=== PATIENT | female | born 1990 | race Caucasian/White ===

== ENCOUNTER 2022-09-27 21:22 | Inpatient (IN) | payer OTHER, SELFPAY ==
[2022-09-27 22:08] VITALS: BMI 32.4
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
--- NOTE | 2022-09-28 09:46 | HE.PHANOTE ---
METHADONE MAINTENANCE CLINIC VERIFICATION FORM [facility] [place] . LAST DOSE 09/25/22
[2022-09-28] MEDS: Multivitamin TABLET 1 TAB PO (09:48)
[2022-09-28] MEDS: Nicotine 21 MG PATCH.TD24 TRANSDERMA (09:48)
[2022-09-28] MEDS: methADONE HCl 20 MG/2 ML ORAL.CONC 30 MG PO (10:34)
[2022-09-28 11:04] VITALS: BP 115/54; PULSE 72; RESP 18; TEMP 36.3; O2SAT 99
[2022-09-28] MEDS: hydrOXYzine HCL 25 MG TABLET PO ×3 (11:15→20:40)
[2022-09-28] MEDS: Cyclobenzaprine HCl 10 MG TABLET PO (11:15)
[2022-09-28] MEDS: Ondansetron ODT 4 MG TAB.RAPDIS TRANSLINGU (11:16)
[2022-09-28] MEDS: Dicyclomine HCl 10 MG CAPSULE PO (11:16)
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
[2022-09-28 18:00] VITALS: BP 97/50; PULSE 61; TEMP 36.1; O2SAT 100
[2022-09-29] MEDS: Clindamycin HCL 300 MG CAPSULE PO ×3 (05:45→21:28)
[2022-09-29 08:05] VITALS: BP 85/49; PULSE 57; RESP 18; TEMP 36.3; O2SAT 98
[2022-09-29] MEDS: Multivitamin TABLET 1 TAB PO (08:16)
[2022-09-29] MEDS: methADONE HCl 20 MG/2 ML ORAL.CONC 30 MG PO (08:16)
[2022-09-29 09:15] VITALS: BP 140/94
[2022-09-29] MEDS: hydrOXYzine HCL 25 MG TABLET PO ×2 (12:13→18:33)
--- NOTE | 2022-09-29 12:52 | P.PNPSI_ITS ---
Subjective Subjective Date of Service: 09/29/22 Reason For Visit: Depression,Opiate use d/o,Polysubstance abuse d/o Interim History: Met with patient; discussed with team Patient reports that she is still depressed and anxious but feeling a little better on the unit. She very much wants help getting and staying sober and is asking if it is possible for her to go to a CSS; she also said that she wants to remain on methadone and there was a methadone clinic near where her mother lives in [place]. Discussed history further and patient endorses that even during her 2 years of sobriety, she would have manic episodes that lasted about 3-5 days during which time she was hyperactive, cleaning the whole house, requiring almost no sleep at all yet wide awake, talking fast, increased libido, spending money and engaging in dangerous activities like jumping from bridge to bridge or getting on top of cars, something she said she would look back on and regret. She also says that most of her relapse as with substance abuse would occur during these 3-5 day periods. Patient reports these manic episodes alternate with 3-5 days of feeling very depressed, not getting out of better attending to any ADLs. She says these depressed and manic episodes would alternate back to back however there were would sometimes be maybe a month where she was only depressed. Patient has few medication trials. Discussed options including repairer typewriter's concern for possible bipolar disorder and need for mood stabilizers. Patient agreed to trial of lithium after reviewing risks/side effects. Also discussed worse Lamictal which can help cover for PTSD symptoms however patient is worried she would forget to take it Patient shared more details about her history of trauma which as mentioned before is significant Patient discussed how she had her 1st child at 15 whom she eventually gave up for adoption Mental Status Exam Mental Status Exam Narrative: Pt is alert and oriented; behavior is hyperactive but cooperative, and friendly; patient is not in distress; dressed in hospital attire with unkempt hair but good hygiene; mood is depressed... Anxious and affect congruent; eye contact appropriate; Speech is hyperverbal and a little pressured; normal volume and prosody; some psychomotor agitation present; thought process is mostly goal directed but can become quite circumstantial; Thought content is on tx; otherwise pertinent to relevant topics and without any delusional content, paranoid ideations or grandiosity; intermittent passive SI/no HI. There is no evidence of perceptual disturbance and denies AVH Patients insight and judgment impaired Diagnostics Vital Signs (24Hr): Vital Signs - 24 hr 09/28/22 18:00 09/29/22 08:05 09/29/22 09:15 Temperature 96.9 F 97.3 F Pulse Rate 61 57 Respiratory Rate 18 Blood Pressure 97/50 L 85/49 L 140/94 H Pulse Oximetry 100 98 Oxygen Delivery Method Room Air Room Air BMI result Body Mass Index 32.4 Medications Medications Current Medications Acetaminophen (Acetaminophen 325 Mg Tablet) 650 mg PO Q6H PRN PRN Reason: Headache/Pain Mild Scale (1-3) Al Hydroxide/Mg Hydroxide (Magnesium Hydrox/Alum Hydrox 30 Ml Oral.Susp) 30 ml PO Q6H PRN PRN Reason: Heartburn/Nausea Clindamycin HCl (Clindamycin Hcl 300 Mg Capsule) 300 mg PO Q8H [facility] Last Admin: 09/29/22 05:45 Dose: 300 mg Clonidine HCl (Clonidine Hcl 0.1 Mg Tablet) 0.1 mg PO Q4H PRN; Protocol PRN Reason: withdrawal symptoms Cyclobenzaprine HCl (Cyclobenzaprine Hcl 10 Mg Tablet) 10 mg PO TID PRN PRN Reason: muscle cramps Last Admin: 09/28/22 11:15 Dose: 10 mg Dicyclomine HCl (Dicyclomine Hcl 10 Mg Capsule) 10 mg PO QID PRN PRN Reason: abdominal cramps Last Admin: 09/28/22 11:16 Dose: 10 mg Gabapentin (Gabapentin 300 Mg Capsule) 300 mg PO TID PRN PRN Reason: anxiety/insomnia Hydroxyzine HCl (Hydroxyzine Hcl 25 Mg Tablet) 25 mg PO Q6H PRN PRN Reason: Anxiety Last Admin: 09/29/22 12:13 Dose: 25 mg Loperamide HCl (Loperamide Hcl 2 Mg Capsule) 2 mg PO Q6H PRN PRN Reason: Loose Stool Magnesium Hydroxide (Milk Of Magnesia 30 Ml Oral.Susp) 30 ml PO DAILY PRN PRN Reason: Constipation Melatonin (Melatonin 3 Mg Tablet) 3 mg PO BEDTIME PRN PRN Reason: Insomnia Methadone HCl (Methadone Hcl 20 Mg/2 Ml Oral.Conc) 30 mg PO DAILY [facility] Last Admin: 09/29/22 08:16 Dose: 30 mg Multivitamins/Vitamin C (Multivitamin Tablet) 1 tab PO DAILY [facility] Last Admin: 09/29/22 08:16 Dose: 1 tab Nicotine (Nicotine 21 Mg Patch.Td24) 21 mg TRANSDERMA DAILY [facility] Last Admin: 09/29/22 09:01 Dose: Not Given Nicotine Polacrilex (Nicotine Polacrilex Lozenge 2 Mg Lozenge) 2 mg BUCCAL Q2H PRN PRN Reason: Nicotine Cravings Olanzapine (Olanzapine 5 Mg Tablet) 5 mg PO TID PRN PRN Reason: agitation Ondansetron HCl (Ondansetron Odt 4 Mg Tab.Rapdis) 4 mg TRANSLINGU Q6H PRN PRN Reason: nasuea Trazodone HCl (Trazodone Hcl 50 Mg Tablet) 50 mg PO BEDTIME MRX1 PRN PRN Reason: Insomnia Allergies Allergies Allergy/AdvReac Type Severity Reaction Status Date / Time codeine Allergy Unknown Unknown Verified 09/27/22 14:43 perphenazine Allergy Unknown Unknown Verified 09/27/22 14:43 pcn Allergy Unknown Unknown Uncoded 09/27/22 14:43 Assessment & Plan Assessment & Plan (1) Routine history and physical examination of adult: Status: Acute Code(s): Z00.00 - Encounter for general adult medical examination without abnormal findings Plan Patient is a 31-year-old resilient, friendly female with history of PTSD, depression and mood lability, substance abuse who presents for depression, SI in the face of untreated psychiatric illness and ongoing substance abuse.? -patient is depressed; further review of history reveals evidence for bipolar disorder as patient has manic episodes that last about 3-5 days exhibiting most symptoms of kimberley. While ADHD and trauma are likely contributing factors, patient meets criteria for bipolar; she also has family history of bipolar disorder. -patient has history of severe and extensive trauma dating back to childhood; foster care...? Despite all this she managed to graduate high school and even attend some college Hospital course: 09/29 patient remains depressed with intermittent passive SI however she feels more hopeful and is very eager to pursue sobriety, coming up with hopeful plans. History further reviewed and patient meets criteria for bipolar disorder; she agrees to start lithium since she also has chronic depression and intermittent chronic SI. Plan: CV Q 15 minute checks START [place] ER 300mg qhs Will consider Lamictal as well since it is a mood stabilizer but also helps with PTSD symptoms; patient ambivalent Continue methadone 30 mg; will discuss maintenance plan; patient says this dose is helping with withdrawal however it will not keep for sober Comfort medications for withdrawal symptoms Will further evaluate for medication for mood lability Gather collateral; patient gave verbal permission to discuss case with her mother and sister; mother also has history of substance abuse however has been sober for year and a half and the to are supportive History Hepatitis C Pt currently asymptomatic: no abdominal pain or swelling, fever, fatigue, jaundice F/U outpatient with PCP for possible treatment Patient educated on: diagnosis, medication risk/benefits, substance abuse and therapeutic strategies Informed Consent: understands Reason for continued inpatient stay Substantial Risk for: rapid decompensation Time Spent With Patient Time: Total time managing care of this patient today ____ minutes.
[2022-09-29] MEDS: Gabapentin 300 MG CAPSULE PO ×3 (13:16→20:06)
[2022-09-29 18:00] VITALS: BP 115/55; PULSE 78; RESP 18; TEMP 36.8; O2SAT 98
[2022-09-29] MEDS: Lithium Carbonate ER 300 MG TABLET.ER PO (20:06)
[2022-09-30 06:00] VITALS: BP 110/68; PULSE 68; RESP 14; TEMP 36.8; O2SAT 99
[2022-09-30] MEDS: Clindamycin HCL 300 MG CAPSULE PO ×3 (06:22→20:22)
[2022-09-30] MEDS: methADONE HCl 20 MG/2 ML ORAL.CONC 30 MG PO (08:32)
[2022-09-30] MEDS: Multivitamin TABLET 1 TAB PO (08:32)
[2022-09-30] MEDS: Magnesium Hydrox/Alum Hydrox 30 ML ORAL.SUSP PO ×2 (08:32→20:25)
[2022-09-30] MEDS: Gabapentin 300 MG CAPSULE PO ×2 (11:32→18:14)
--- NOTE | 2022-09-30 13:32 | P.PNPSI_ITS ---
Subjective Subjective Date of Service: 09/30/22 Reason For Visit: Depression,Opiate use d/o,Polysubstance abuse d/o Interim History: met with pt; discussed with team pt hyperactive; patient thinks this is due to ADHD rather than current manic episode, explaining that with ADHD she may blurt something out, but immediately regrets it; however during a manic episode she may say all sorts of things, some angry and some challenging things as well but have no regret until after manic episode over. Patient reports that her current hyperactivity and distractibility is her baseline and not a manic episode. pt says [place] seemed to have a calming effect on her last night and she wants to continue; discussed difficulty knowing dose; also discussed PTSD symptoms and possible treatment. pt having w/drawal; asks if methadone can be increased; wants a CSS if possible Mental Status Exam Mental Status Exam Narrative: Pt is alert and oriented; behavior is hyperactive and distracted, but cooperative, and friendly; patient is not in distress; dressed in hospital attire with unkempt hair but good hygiene; mood is depressed... Anxious but OK and affect congruent; eye contact appropriate; Speech is hyperverbal and a little pressured; normal volume and prosody; some psychomotor agitation present; thought process is mostly goal directed but can get distracted; sometimes circumstantial; Thought content is on tx, dealing with issues, sobriety, ptsd; otherwise pertinent to relevant topics and without any delusional content, paranoid ideations or grandiosity; no SI/no HI. There is no evidence of perceptual disturbance and denies AVH Patients insight and judgment impaired but improving Diagnostics Vital Signs (24Hr): Vital Signs - 24 hr 09/29/22 18:00 09/30/22 06:00 Temperature 98.3 F 98.2 F Pulse Rate 78 68 Respiratory Rate 18 14 Blood Pressure 115/55 L 110/68 Pulse Oximetry 98 99 Oxygen Delivery Method Room Air Room Air BMI result Body Mass Index 32.4 Medications Medications Current Medications Acetaminophen (Acetaminophen 325 Mg Tablet) 650 mg PO Q6H PRN PRN Reason: Headache/Pain Mild Scale (1-3) Al Hydroxide/Mg Hydroxide (Magnesium Hydrox/Alum Hydrox 30 Ml Oral.Susp) 30 ml PO Q6H PRN PRN Reason: Heartburn/Nausea Last Admin: 09/30/22 08:32 Dose: 30 ml Clindamycin HCl (Clindamycin Hcl 300 Mg Capsule) 300 mg PO Q8H [facility] Last Admin: 09/30/22 06:22 Dose: 300 mg Clonidine HCl (Clonidine Hcl 0.1 Mg Tablet) 0.1 mg PO Q4H PRN; Protocol PRN Reason: Anxiety Cyclobenzaprine HCl (Cyclobenzaprine Hcl 10 Mg Tablet) 10 mg PO TID PRN PRN Reason: muscle cramps Last Admin: 09/28/22 11:15 Dose: 10 mg Dicyclomine HCl (Dicyclomine Hcl 10 Mg Capsule) 10 mg PO QID PRN PRN Reason: abdominal cramps Last Admin: 09/28/22 11:16 Dose: 10 mg Gabapentin (Gabapentin 300 Mg Capsule) 300 mg PO TID PRN PRN Reason: anxiety/insomnia Last Admin: 09/30/22 11:32 Dose: 300 mg Hydroxyzine HCl (Hydroxyzine Hcl 50 Mg Tablet) 50 mg PO Q6H PRN PRN Reason: Anxiety [place] Carbonate ([place] Carbonate Er 300 Mg Tablet.Er) 300 mg PO BEDTIME [facility] Last Admin: 09/29/22 20:06 Dose: 300 mg Loperamide HCl (Loperamide Hcl 2 Mg Capsule) 2 mg PO Q6H PRN PRN Reason: Loose Stool Magnesium Hydroxide (Milk Of Magnesia 30 Ml Oral.Susp) 30 ml PO DAILY PRN PRN Reason: Constipation Melatonin (Melatonin 3 Mg Tablet) 3 mg PO BEDTIME PRN PRN Reason: Insomnia Methadone HCl (Methadone Hcl 20 Mg/2 Ml Oral.Conc) 30 mg PO DAILY [facility] Last Admin: 09/30/22 08:32 Dose: 30 mg Multivitamins/Vitamin C (Multivitamin Tablet) 1 tab PO DAILY [facility] Last Admin: 09/30/22 08:32 Dose: 1 tab Nicotine (Nicotine 21 Mg Patch.Td24) 21 mg TRANSDERMA DAILY [facility] Last Admin: 09/30/22 09:09 Dose: Not Given Nicotine Polacrilex (Nicotine Polacrilex Lozenge 2 Mg Lozenge) 2 mg BUCCAL Q2H PRN PRN Reason: Nicotine Cravings Olanzapine (Olanzapine 5 Mg Tablet) 5 mg PO TID PRN PRN Reason: agitation Ondansetron HCl (Ondansetron Odt 4 Mg Tab.Rapdis) 4 mg TRANSLINGU Q6H PRN PRN Reason: nasuea Trazodone HCl (Trazodone Hcl 50 Mg Tablet) 50 mg PO BEDTIME MRX1 PRN PRN Reason: Insomnia Allergies Allergies Allergy/AdvReac Type Severity Reaction Status Date / Time codeine Allergy Unknown Unknown Verified 09/27/22 14:43 perphenazine Allergy Unknown Unknown Verified 09/27/22 14:43 pcn Allergy Unknown Unknown Uncoded 09/27/22 14:43 Assessment & Plan Assessment & Plan (1) Routine history and physical examination of adult: Status: Acute Code(s): Z00.00 - Encounter for general adult medical examination without abnormal findings Plan Patient is a 31-year-old resilient, friendly female with history of PTSD, depression and mood lability, substance abuse who presents for depression, SI in the face of untreated psychiatric illness and ongoing substance abuse.? -patient is depressed; further review of history reveals evidence for bipolar disorder as patient has manic episodes that last about 3-5 days exhibiting most symptoms of kimberley. While ADHD and trauma are likely contributing factors, patient meets criteria for bipolar; she also has family history of bipolar disorder. -patient has history of severe and extensive trauma dating back to childhood; foster care...? Despite all this she managed to graduate high school and even attend some college Hospital course: 09/29 patient remains depressed with intermittent passive SI however she feels more hopeful and is very eager to pursue sobriety, coming up with hopeful plans. History further reviewed and patient meets criteria for bipolar disorder; she agrees to start lithium since she also has chronic depression and intermittent chronic SI. 09/30 continue current lithium dose; difficult to decide whether to increase does or to leave as it is since patient is not currently having a manic episode and thus unable to tell what dose she will need; also deciding on medication for PTSD and debating concerns about something like Prozac triggering a manic episode verses Lamictal which is a more complicated medication. Plan: CV Q 15 minute checks Continue [place] ER 300mg qhs consider prozac Will consider Lamictal as well since it is a mood stabilizer but also helps with PTSD symptoms; patient ambivalent Will give methadone 5 mg 1 time dose to help with withdrawal Continue methadone 30 mg; will discuss maintenance plan; patient says this dose is helping with withdrawal however it will not keep for sober Comfort medications for withdrawal symptoms Will further evaluate for medication for mood lability Gather collateral; patient gave verbal permission to discuss case with her mother and sister; mother also has history of substance abuse however has been sober for year and a half and the to are supportive History Hepatitis C Pt currently asymptomatic: no abdominal pain or swelling, fever, fatigue, jaundice F/U outpatient with PCP for possible treatment Patient educated on: diagnosis, medication risk/benefits and substance abuse Informed Consent: understands Reason for continued inpatient stay Substantial Risk for: rapid decompensation Time Spent With Patient Time: Total time managing care of this patient today ____ minutes.
[2022-09-30] MEDS: methADONE HCl 20 MG/2 ML ORAL.CONC 5 MG PO (15:53)
[2022-09-30 18:00] VITALS: BP 130/82; PULSE 70; TEMP 36.9; O2SAT 97
[2022-09-30] MEDS: OLANZapine 5 MG TABLET PO (18:09)
[2022-09-30] MEDS: Lithium Carbonate ER 300 MG TABLET.ER PO (20:22)
[2022-09-30] MEDS: hydrOXYzine HCL 50 MG TABLET PO (20:55)
[2022-10-01 06:00] VITALS: RESP 16
[2022-10-01] MEDS: Clindamycin HCL 300 MG CAPSULE PO ×3 (06:17→21:23)
[2022-10-01] MEDS: Multivitamin TABLET 1 TAB PO (09:25)
[2022-10-01] MEDS: methADONE HCl 20 MG/2 ML ORAL.CONC 30 MG PO (09:25)
[2022-10-01] MEDS: Magnesium Hydrox/Alum Hydrox 30 ML ORAL.SUSP PO (09:25)
[2022-10-01] MEDS: Milk of Magnesia 30 ML ORAL.SUSP PO (10:09)
[2022-10-01] MEDS: Gabapentin 300 MG CAPSULE PO ×3 (10:36→20:16)
[2022-10-01] MEDS: Dicyclomine HCl 10 MG CAPSULE PO (10:37)
--- NOTE | 2022-10-01 14:18 | P.PNPSI_ITS ---
Subjective Subjective Date of Service: 10/01/22 Reason For Visit: Depression,Opiate use d/o,Polysubstance abuse d/o Interim History: Met with patient; discussed with team Patient says she is feeling more calm and does appear to be so. Patient says she does have trouble sleeping and agrees to try trazodone for sleep. Discussed bipolar disorder, PTSD and need for her to have her mood stabilized prior to starting something like Prozac for PTSD; patient agrees to increase lithium to 600 mg q.h.s. for now. Of note, regarding lithium publicity writer discussed potential teratogenic to which patient says she has implanted control and not at risk for Mental Status Exam Mental Status Exam Narrative: Pt is alert and oriented; behavior is hyperactive and distracted, but cooperative, and friendly; patient is not in distress; dressed in hospital attire with unkempt hair but good hygiene; mood is OK and affect congruent; eye contact appropriate; Speech is a little pressured; normal volume and prosody; some psychomotor agitation present; thought process is mostly goal directed but can get distracted; sometimes circumstantial; Thought content is on tx, dealing with issues, sobriety, ptsd; otherwise pertinent to relevant topics and without any delusional content, paranoid ideations or grandiosity; no SI/no HI. There is no evidence of perceptual disturbance and denies AVH Patients insight and judgment are fair. Diagnostics Vital Signs (24Hr): Vital Signs - 24 hr 09/30/22 18:00 10/01/22 06:00 Temperature 98.4 F Pulse Rate 70 Respiratory Rate 16 Blood Pressure 130/82 Pulse Oximetry 97 Oxygen Delivery Method Room Air BMI result Body Mass Index 32.4 Medications Medications Current Medications Acetaminophen (Acetaminophen 325 Mg Tablet) 650 mg PO Q6H PRN PRN Reason: Headache/Pain Mild Scale (1-3) Al Hydroxide/Mg Hydroxide (Magnesium Hydrox/Alum Hydrox 30 Ml Oral.Susp) 30 ml PO Q6H PRN PRN Reason: Heartburn/Nausea Last Admin: 10/01/22 09:25 Dose: 30 ml Clindamycin HCl (Clindamycin Hcl 300 Mg Capsule) 300 mg PO Q8H [facility] Last Admin: 10/01/22 06:17 Dose: 300 mg Clonidine HCl (Clonidine Hcl 0.1 Mg Tablet) 0.1 mg PO Q4H PRN; Protocol PRN Reason: Anxiety Cyclobenzaprine HCl (Cyclobenzaprine Hcl 10 Mg Tablet) 10 mg PO TID PRN PRN Reason: muscle cramps Last Admin: 09/28/22 11:15 Dose: 10 mg Dicyclomine HCl (Dicyclomine Hcl 10 Mg Capsule) 10 mg PO QID PRN PRN Reason: abdominal cramps Last Admin: 10/01/22 10:37 Dose: 10 mg Gabapentin (Gabapentin 300 Mg Capsule) 300 mg PO TID PRN PRN Reason: anxiety/insomnia Last Admin: 10/01/22 10:36 Dose: 300 mg Hydroxyzine HCl (Hydroxyzine Hcl 50 Mg Tablet) 50 mg PO Q6H PRN PRN Reason: Anxiety Last Admin: 09/30/22 20:55 Dose: 50 mg [place] Carbonate ([place] Carbonate Er 300 Mg Tablet.Er) 600 mg PO BEDTIME [facility] Loperamide HCl (Loperamide Hcl 2 Mg Capsule) 2 mg PO Q6H PRN PRN Reason: Loose Stool Magnesium Hydroxide (Milk Of Magnesia 30 Ml Oral.Susp) 30 ml PO DAILY PRN PRN Reason: Constipation Last Admin: 10/01/22 10:09 Dose: 30 ml Melatonin (Melatonin 3 Mg Tablet) 3 mg PO BEDTIME PRN PRN Reason: Insomnia Methadone HCl (Methadone Hcl 20 Mg/2 Ml Oral.Conc) 30 mg PO DAILY [facility] Last Admin: 10/01/22 09:25 Dose: 30 mg Multivitamins/Vitamin C (Multivitamin Tablet) 1 tab PO DAILY [facility] Last Admin: 10/01/22 09:25 Dose: 1 tab Nicotine (Nicotine 21 Mg Patch.Td24) 21 mg TRANSDERMA DAILY [facility] Last Admin: 10/01/22 10:07 Dose: Not Given Nicotine Polacrilex (Nicotine Polacrilex Lozenge 2 Mg Lozenge) 2 mg BUCCAL Q2H PRN PRN Reason: Nicotine Cravings Olanzapine (Olanzapine 5 Mg Tablet) 5 mg PO TID PRN PRN Reason: agitation Last Admin: 09/30/22 18:09 Dose: 5 mg Ondansetron HCl (Ondansetron Odt 4 Mg Tab.Rapdis) 4 mg TRANSLINGU Q6H PRN PRN Reason: nasuea Trazodone HCl (Trazodone Hcl 50 Mg Tablet) 50 mg PO BEDTIME MRX1 PRN PRN Reason: Insomnia Allergies Allergies Allergy/AdvReac Type Severity Reaction Status Date / Time codeine Allergy Unknown Unknown Verified 09/27/22 14:43 perphenazine Allergy Unknown Unknown Verified 09/27/22 14:43 pcn Allergy Unknown Unknown Uncoded 09/27/22 14:43 Assessment & Plan Assessment & Plan (1) Bipolar disorder: Status: Acute Code(s): F31.9 - Bipolar disorder, unspecified (2) PTSD (post-traumatic stress disorder): Status: Acute Code(s): F43.10 - Post-traumatic stress disorder, unspecified (3) Opioid use disorder: Status: Acute Code(s): F11.90 - Opioid use, unspecified, uncomplicated (4) Cocaine use disorder: Status: Acute Code(s): F14.10 - Cocaine abuse, uncomplicated Plan Patient is a 31-year-old resilient, friendly female with history of PTSD, depression and mood lability, substance abuse who presents for depression, SI in the face of untreated psychiatric illness and ongoing substance abuse.? -patient is depressed; further review of history reveals evidence for bipolar disorder as patient has manic episodes that last about 3-5 days exhibiting most symptoms of kimberley. While ADHD and trauma are likely contributing factors, patient meets criteria for bipolar; she also has family history of bipolar disorder. -patient has history of severe and extensive trauma dating back to childhood; foster care...? Despite all this she managed to graduate high school and even attend some college Hospital course: 09/29 patient remains depressed with intermittent passive SI however she feels more hopeful and is very eager to pursue sobriety, coming up with hopeful plans. History further reviewed and patient meets criteria for bipolar disorder; she agrees to start lithium since she also has chronic depression and intermittent chronic SI. 09/30 continue current lithium dose; difficult to decide whether to increase does or to leave as it is since patient is not currently having a manic episode and thus unable to tell what dose she will need; also deciding on medication for PTSD and debating concerns about something like Prozac triggering a manic episode verses Lamictal which is a more complicated medication. 10/01 patient seems to be a little more calm the still intermittently hyperactive. Agrees to increasing lithium to 600 mg q.h.s.; once mood better stabilized will likely start SSRI for PTSD Plan: CV Q 15 minute checks Continue [place] ER 300mg qhs consider prozac Will consider Lamictal as well since it is a mood stabilizer but also helps with PTSD symptoms; patient ambivalent Continue methadone 30 mg; will discuss maintenance plan; patient says this dose is helping with withdrawal however it will not keep for sober Comfort medications for withdrawal symptoms Will further evaluate for medication for mood lability Gather collateral; patient gave verbal permission to discuss case with her mother and sister; mother also has history of substance abuse however has been sober for year and a half and the to are supportive History Hepatitis C Pt currently asymptomatic: no abdominal pain or swelling, fever, fatigue, jaundice F/U outpatient with PCP for possible treatment Patient educated on: diagnosis and medication risk/benefits Informed Consent: understands Reason for continued inpatient stay Substantial Risk for: rapid decompensation Time Spent With Patient Time: Total time managing care of this patient today ____ minutes.
[2022-10-01 17:00] VITALS: BP 115/53; PULSE 79; TEMP 36.3; O2SAT 97
[2022-10-01] MEDS: cloNIDine HCL 0.1 MG TABLET PO (17:02)
[2022-10-01] MEDS: Lithium Carbonate ER 300 MG TABLET.ER 600 MG PO (21:23)
[2022-10-01] MEDS: hydrOXYzine HCL 50 MG TABLET PO (22:11)
[2022-10-02] MEDS: Clindamycin HCL 300 MG CAPSULE PO ×3 (06:02→21:39)
[2022-10-02] MEDS: Multivitamin TABLET 1 TAB PO (08:16)
[2022-10-02] MEDS: methADONE HCl 20 MG/2 ML ORAL.CONC 30 MG PO (08:16)
[2022-10-02 08:18] VITALS: BP 108/54; PULSE 67; RESP 18; TEMP 36.4; O2SAT 100
[2022-10-02] MEDS: Gabapentin 300 MG CAPSULE PO ×3 (08:27→18:36)
--- NOTE | 2022-10-02 08:59 | HO.PSYCHPN ---
Subjective Subjective Date of Service: 10/02/22 Reason For Visit: Depression,Opiate use d/o,Polysubstance abuse d/o Interim History: Met with patient; discussed with team Patient saying she feels better than she ever has, more stable, more calm, able to think more clearly. She feels that lithium is what is making this possible. Patient slept well last night. Today on the floor she was dancing around a bit but quiet it down after getting Zyprexa; loan underwriter continues to debate whether patient is having manic symptoms or if it is ADHD. Patient shared that she frequently has auditory hallucinations. She said that mostly it is of her father or God and that they are mostly encouraging comments or parental redirections; patient is vague but says there have been times in the past when a negative thing may have been said. Patient also says that she sees images, shadows and illusions. She said that right now, looking at loan underwriter she can see the silhouette of image behind. Patient's descriptions are vague and it is difficult to pinpoint specifics about these experiences and whether it is AVH verse mood versus illusions. Patient however concludes that these experiences are helpful to her and welcomed. Discussed aftercare and patient remains quite ambivalent about what she should do; she is interested in a CSS type program however is worried about the specifics, whether not it will be helpful to her and thus not ready to make a definitive choice; she is also considering going to her brother's who lives in [place] where she will have access to methadone and providers; she has considered going to [place] to live with her mother however because she does not have [place] insurance she understands this this will take more time to organized. Patient reiterates she is feeling much better and feels safe; sobriety remains a big issue for her stability and she wishes methadone could be increased however she has yet to be locked into a methadone clinic making it hard to titrate dose. Patient is asking about being discharged this Friday Mental Status Exam Mental Status Exam Narrative: Pt is alert and oriented; behavior is hyperactive and distracted, but cooperative, and friendly; patient is not in distress; dressed in casual attire with unkempt hair but good hygiene; mood is good and affect congruent, brighter, calmer; eye contact appropriate; Speech is not pressured, but can be verbose; normal volume and prosody; intermittent, mild psychomotor agitation present; thought process is mostly goal directed but can get distracted; sometimes circumstantial; Thought content is on tx, dealing with issues, sobriety, ptsd; otherwise pertinent to relevant topics; some delusional content and AVH but welcomed; no SI/no HI. Patients insight and judgment are impaired but improved and adequate. Diagnostics Vital Signs (24Hr): Vital Signs - 24 hr 10/01/22 17:00 10/02/22 08:18 Temperature 97.3 F 97.6 F Pulse Rate 79 67 Respiratory Rate 18 Blood Pressure 115/53 L 108/54 L Pulse Oximetry 97 100 Oxygen Delivery Method Room Air Room Air BMI result Body Mass Index 32.4 Medications Medications Current Medications Acetaminophen (Acetaminophen 325 Mg Tablet) 650 mg PO Q6H PRN PRN Reason: Headache/Pain Mild Scale (1-3) Al Hydroxide/Mg Hydroxide (Magnesium Hydrox/Alum Hydrox 30 Ml Oral.Susp) 30 ml PO Q6H PRN PRN Reason: Heartburn/Nausea Last Admin: 10/01/22 09:25 Dose: 30 ml Clindamycin HCl (Clindamycin Hcl 300 Mg Capsule) 300 mg PO Q8H [facility] Last Admin: 10/02/22 06:02 Dose: 300 mg Clonidine HCl (Clonidine Hcl 0.1 Mg Tablet) 0.1 mg PO Q4H PRN; Protocol PRN Reason: Anxiety Last Admin: 10/01/22 17:02 Dose: 0.1 mg Cyclobenzaprine HCl (Cyclobenzaprine Hcl 10 Mg Tablet) 10 mg PO TID PRN PRN Reason: muscle cramps Last Admin: 09/28/22 11:15 Dose: 10 mg Dicyclomine HCl (Dicyclomine Hcl 10 Mg Capsule) 10 mg PO QID PRN PRN Reason: abdominal cramps Last Admin: 10/01/22 10:37 Dose: 10 mg Gabapentin (Gabapentin 300 Mg Capsule) 300 mg PO TID PRN PRN Reason: anxiety/insomnia Last Admin: 10/02/22 08:27 Dose: 300 mg Hydroxyzine HCl (Hydroxyzine Hcl 50 Mg Tablet) 50 mg PO Q6H PRN PRN Reason: Anxiety Last Admin: 10/01/22 22:11 Dose: 50 mg Cathay Carbonate (Cathay Carbonate Er 300 Mg Tablet.Er) 600 mg PO BEDTIME [facility] Last Admin: 10/01/22 21:23 Dose: 600 mg Loperamide HCl (Loperamide Hcl 2 Mg Capsule) 2 mg PO Q6H PRN PRN Reason: Loose Stool Magnesium Hydroxide (Milk Of Magnesia 30 Ml Oral.Susp) 30 ml PO DAILY PRN PRN Reason: Constipation Last Admin: 10/01/22 10:09 Dose: 30 ml Melatonin (Melatonin 3 Mg Tablet) 3 mg PO BEDTIME PRN PRN Reason: Insomnia Methadone HCl (Methadone Hcl 20 Mg/2 Ml Oral.Conc) 30 mg PO DAILY [facility] Last Admin: 10/02/22 08:16 Dose: 30 mg Multivitamins/Vitamin C (Multivitamin Tablet) 1 tab PO DAILY [facility] Last Admin: 10/02/22 08:16 Dose: 1 tab Nicotine (Nicotine 21 Mg Patch.Td24) 21 mg TRANSDERMA DAILY [facility] Last Admin: 10/02/22 08:17 Dose: Not Given Nicotine Polacrilex (Nicotine Polacrilex Lozenge 2 Mg Lozenge) 2 mg BUCCAL Q2H PRN PRN Reason: Nicotine Cravings Olanzapine (Olanzapine 5 Mg Tablet) 5 mg PO TID PRN PRN Reason: agitation Last Admin: 09/30/22 18:09 Dose: 5 mg Ondansetron HCl (Ondansetron Odt 4 Mg Tab.Rapdis) 4 mg TRANSLINGU Q6H PRN PRN Reason: nasuea Trazodone HCl (Trazodone Hcl 50 Mg Tablet) 50 mg PO BEDTIME MRX1 PRN PRN Reason: Insomnia Allergies Allergies Allergy/AdvReac Type Severity Reaction Status Date / Time codeine Allergy Unknown Unknown Verified 09/27/22 14:43 perphenazine Allergy Unknown Unknown Verified 09/27/22 14:43 pcn Allergy Unknown Unknown Uncoded 09/27/22 14:43 Assessment & Plan Assessment & Plan (1) Bipolar disorder: Status: Acute Code(s): F31.9 - Bipolar disorder, unspecified (2) PTSD (post-traumatic stress disorder): Status: Acute Code(s): F43.10 - Post-traumatic stress disorder, unspecified (3) Opioid use disorder: Status: Acute Code(s): F11.90 - Opioid use, unspecified, uncomplicated (4) Cocaine use disorder: Status: Acute Code(s): F14.10 - Cocaine abuse, uncomplicated Plan Patient is a 31-year-old resilient, friendly female with history of PTSD, depression and mood lability, substance abuse who presents for depression, SI in the face of untreated psychiatric illness and ongoing substance abuse.? -patient is depressed; further review of history reveals evidence for bipolar disorder as patient has manic episodes that last about 3-5 days exhibiting most symptoms of kimberley. While ADHD and trauma are likely contributing factors, patient meets criteria for bipolar; she also has family history of bipolar disorder. -patient has history of severe and extensive trauma dating back to childhood; foster care...? Despite all this she managed to graduate high school and even attend some college Hospital course: 09/29 patient remains depressed with intermittent passive SI however she feels more hopeful and is very eager to pursue sobriety, coming up with hopeful plans. History further reviewed and patient meets criteria for bipolar disorder; she agrees to start lithium since she also has chronic depression and intermittent chronic SI. 09/30 continue current lithium dose; difficult to decide whether to increase does or to leave as it is since patient is not currently having a manic episode and thus unable to tell what dose she will need; also deciding on medication for PTSD and debating concerns about something like Prozac triggering a manic episode verses Lamictal which is a more complicated medication. 10/01 patient seems to be a little more calm the still intermittently hyperactive. Agrees to increasing lithium to 600 mg q.h.s.; once mood better stabilized will likely start SSRI for PTSD 10/02Patient saying she feels better than she ever has, more stable, more calm, able to think more clearly. She feels that lithium is what is making this possible. Patient slept well last night. Today on the floor she was dancing around a bit but quiet it down after getting Zyprexa; loan underwriter continues to debate whether patient is having manic symptoms or if it is ADHD. Patient shared that she frequently has auditory hallucinations. She said that mostly it is of her father or God and that they are mostly encouraging comments or parental redirections; patient is vague but says there have been times in the past when a negative thing may have been said. Patient also says that she sees images, shadows and illusions. She said that right now, looking at loan underwriter she can see the silhouette of image behind. Patient's descriptions are vague and it is difficult to pinpoint specifics about these experiences and whether AVH is mood congruent vs trauma related vs due to an organic psychotic disorder vs only illusions. The fact that patient likes these experiences, welcomes them and finds them helpful seems to lean AVH more towards etiology of trauma history than an organic psychotic disorder. -ambivalent about aftercare; CSS verse going to limit her brothers in [place] verse going to her mother's in [place]. Patient is asking about being discharged this Friday -at this time will leave diagnosis is bipolar disorder; will consider AVH to be mood congruent for now as patient is vague and it is too difficult to assess further. -will hold off on starting any other medications such as SSRI since patient is feeling much better, stable, without SI and is likely to discharge soon Plan: CV Q 15 minute checks Continue Cathay ER 300mg b.i.d. Hold off prozac for now; once patient is stabilized and has a consistent provider she can explore treatment for PTSD Continue gabapentin 300 mg t.i.d. p.r.n. for anxiety Continue methadone 30 mg; will discuss maintenance plan; patient says this dose is helping with withdrawal however it will not keep for sober Comfort medications for withdrawal symptoms Will further evaluate for medication for mood lability Gather collateral; patient gave verbal permission to discuss case with her mother and sister; mother also has history of substance abuse however has been sober for year and a half and the to are supportive History Hepatitis C Pt currently asymptomatic: no abdominal pain or swelling, fever, fatigue, jaundice F/U outpatient with PCP for possible treatment Patient educated on: diagnosis, medication risk/benefits, substance abuse and therapeutic strategies Informed Consent: understands Reason for continued inpatient stay Substantial Risk for: stable for discharge Time Spent With Patient Time: Total time managing care of this patient today ____ minutes.
[2022-10-02] MEDS: OLANZapine 5 MG TABLET PO ×2 (10:46→20:21)
[2022-10-02] MEDS: hydrOXYzine HCL 50 MG TABLET PO ×2 (10:46→20:21)
[2022-10-02] MEDS: methADONE HCl 20 MG/2 ML ORAL.CONC 5 MG PO (14:46)
[2022-10-02] MEDS: cloNIDine HCL 0.1 MG TABLET PO (17:03)
[2022-10-02 17:08] VITALS: BP 109/60; PULSE 64
[2022-10-02 18:00] VITALS: BP 109/67; PULSE 70; RESP 18; TEMP 36.2; O2SAT 99
[2022-10-02] MEDS: Lithium Carbonate ER 300 MG TABLET.ER 600 MG PO (20:21)
[2022-10-03] MEDS: Clindamycin HCL 300 MG CAPSULE PO ×3 (06:27→20:15)
[2022-10-03] MEDS: Gabapentin 300 MG CAPSULE PO ×4 (06:28→20:16)
[2022-10-03 07:00] VITALS: BMI 29.9
[2022-10-03] MEDS: methADONE HCl 20 MG/2 ML ORAL.CONC 30 MG PO (08:04)
[2022-10-03] MEDS: Multivitamin TABLET 1 TAB PO (08:04)
[2022-10-03 08:06] VITALS: BP 108/77; PULSE 59; RESP 18; TEMP 36.6; O2SAT 93
--- NOTE | 2022-10-03 10:02 | HO.PSYCHPN ---
Subjective Subjective Date of Service: 10/03/22 Reason For Visit: Depression,Opiate use d/o,Polysubstance abuse d/o Interim History: met with patient; discussed with team Patient continues to report she is feeling emotionally better, more calm and more stable. She reports intermittent moments of passive SI that are triggered by flashbacks to trauma or self-deprecating thoughts, however she says they are short-lived and resolve on their own which she reports is a sign of improvement. Patient made a comment to another staff saying that if she was discharged she would be suicidal however she recanted that and said I do not really mean it, and that she just blurts out things like that in moments of anxious emotionality. Patient is excited to continue per her soon sobriety with her kids is a very strong protective factor. Patient had a flashback of past trauma yesterday which launched a panic attack; she was able to recover on her own but discussing trauma, PTSD, the frequency of flashbacks, nightmares she agrees to try Prozac to help lower her overall anxiety and address PTSD symptoms. She continues to use gabapentin p.r.n.; she says this helps her calm down quickly especially when she is feeling suicidal and asked for increased dose; selling underwriter discussed risks/side effects of this medication and agreed to increase the frequency but not the dose at this time. Patient decided the best thing for her is to trying get into a CSS program which will help for have more chance of staying sober. She hopes to go to the [facility] but is open to any location. Discussed patient's bingeing; she says that when she is anxious she eats if she does not have drugs around to use; she does not purge on purpose but sometimes vomits if she overeats. Mental Status Exam Mental Status Exam Narrative: Pt is alert and oriented; behavior is hyperactive and distracted, but cooperative, and friendly; patient is not in distress; dressed in casual attire with unkempt hair but good hygiene; mood is good and affect congruent, brighter, calmer; eye contact appropriate; Speech is not pressured, but can be verbose; normal volume and prosody; intermittent, mild psychomotor agitation present; thought process is mostly goal directed but can get distracted; sometimes circumstantial; Thought content is on tx, dealing with issues, sobriety, ptsd; otherwise pertinent to relevant topics; some delusional content and AVH but welcomed; intermittent SI which is chronic/no HI. Patients insight and judgment are impaired but improved and adequate. Diagnostics Vital Signs (24Hr): Vital Signs - 24 hr 10/02/22 17:08 10/02/22 18:00 10/03/22 08:06 Temperature 97.1 F 97.9 F Pulse Rate 64 70 59 Respiratory Rate 18 18 Blood Pressure 109/60 109/67 108/77 Pulse Oximetry 99 93 Oxygen Delivery Method Room Air Room Air BMI result Body Mass Index 29.9 Medications Medications Current Medications Acetaminophen (Acetaminophen 325 Mg Tablet) 650 mg PO Q6H PRN PRN Reason: Headache/Pain Mild Scale (1-3) Al Hydroxide/Mg Hydroxide (Magnesium Hydrox/Alum Hydrox 30 Ml Oral.Susp) 30 ml PO Q6H PRN PRN Reason: Heartburn/Nausea Last Admin: 10/01/22 09:25 Dose: 30 ml Clindamycin HCl (Clindamycin Hcl 300 Mg Capsule) 300 mg PO Q8H [facility] Last Admin: 10/03/22 06:27 Dose: 300 mg Clonidine HCl (Clonidine Hcl 0.1 Mg Tablet) 0.1 mg PO Q4H PRN; Protocol PRN Reason: Anxiety Last Admin: 10/02/22 17:03 Dose: 0.1 mg Cyclobenzaprine HCl (Cyclobenzaprine Hcl 10 Mg Tablet) 10 mg PO TID PRN PRN Reason: muscle cramps Last Admin: 09/28/22 11:15 Dose: 10 mg Dicyclomine HCl (Dicyclomine Hcl 10 Mg Capsule) 10 mg PO QID PRN PRN Reason: abdominal cramps Last Admin: 10/01/22 10:37 Dose: 10 mg Gabapentin (Gabapentin 300 Mg Capsule) 300 mg PO TID PRN PRN Reason: anxiety/insomnia Last Admin: 10/03/22 06:28 Dose: 300 mg Hydroxyzine HCl (Hydroxyzine Hcl 50 Mg Tablet) 50 mg PO Q6H PRN PRN Reason: Anxiety Last Admin: 10/02/22 20:21 Dose: 50 mg [place]ing[place] Carbonate (Graingers Carbonate Er 300 Mg Tablet.Er) 600 mg PO BEDTIME [facility] Last Admin: 10/02/22 20:21 Dose: 600 mg Loperamide HCl (Loperamide Hcl 2 Mg Capsule) 2 mg PO Q6H PRN PRN Reason: Loose Stool Magnesium Hydroxide (Milk Of Magnesia 30 Ml Oral.Susp) 30 ml PO DAILY PRN PRN Reason: Constipation Last Admin: 10/01/22 10:09 Dose: 30 ml Melatonin (Melatonin 3 Mg Tablet) 3 mg PO BEDTIME PRN PRN Reason: Insomnia Methadone HCl (Methadone Hcl 20 Mg/2 Ml Oral.Conc) 30 mg PO DAILY [facility] Last Admin: 10/03/22 08:04 Dose: 30 mg Multivitamins/Vitamin C (Multivitamin Tablet) 1 tab PO DAILY [facility] Last Admin: 10/03/22 08:04 Dose: 1 tab Nicotine (Nicotine 21 Mg Patch.Td24) 21 mg TRANSDERMA DAILY [facility] Last Admin: 10/03/22 08:05 Dose: Not Given Nicotine Polacrilex (Nicotine Polacrilex Lozenge 2 Mg Lozenge) 2 mg BUCCAL Q2H PRN PRN Reason: Nicotine Cravings Olanzapine (Olanzapine 5 Mg Tablet) 5 mg PO TID PRN PRN Reason: agitation Last Admin: 10/02/22 20:21 Dose: 5 mg Olanzapine (Olanzapine 5 Mg Tablet) 5 mg PO TID PRN PRN Reason: agitation Ondansetron HCl (Ondansetron Odt 4 Mg Tab.Rapdis) 4 mg TRANSLINGU Q6H PRN PRN Reason: nasuea Trazodone HCl (Trazodone Hcl 50 Mg Tablet) 50 mg PO BEDTIME MRX1 PRN PRN Reason: Insomnia Allergies Allergies Allergy/AdvReac Type Severity Reaction Status Date / Time codeine Allergy Unknown Unknown Verified 09/27/22 14:43 perphenazine Allergy Unknown Unknown Verified 09/27/22 14:43 pcn Allergy Unknown Unknown Uncoded 09/27/22 14:43 Assessment & Plan Assessment & Plan (1) Bipolar disorder: Status: Acute Code(s): F31.9 - Bipolar disorder, unspecified (2) PTSD (post-traumatic stress disorder): Status: Acute Code(s): F43.10 - Post-traumatic stress disorder, unspecified (3) Opioid use disorder: Status: Acute Code(s): F11.90 - Opioid use, unspecified, uncomplicated (4) Cocaine use disorder: Status: Acute Code(s): F14.10 - Cocaine abuse, uncomplicated Plan Patient is a 31-year-old resilient, friendly female with history of PTSD, depression and mood lability, substance abuse who presents for depression, SI in the face of untreated psychiatric illness and ongoing substance abuse.? -patient is depressed; further review of history reveals evidence for bipolar disorder as patient has manic episodes that last about 3-5 days exhibiting most symptoms of kimberley. While ADHD and trauma are likely contributing factors, patient meets criteria for bipolar; she also has family history of bipolar disorder. -patient has history of severe and extensive trauma dating back to childhood; foster care...? Despite all this she managed to graduate high school and even attend some [facility] Hospital course: 09/29 patient remains depressed with intermittent passive SI however she feels more hopeful and is very eager to pursue sobriety, coming up with hopeful plans. History further reviewed and patient meets criteria for bipolar disorder; she agrees to start lithium since she also has chronic depression and intermittent chronic SI. 09/30 continue current lithium dose; difficult to decide whether to increase does or to leave as it is since patient is not currently having a manic episode and thus unable to tell what dose she will need; also deciding on medication for PTSD and debating concerns about something like Prozac triggering a manic episode verses Lamictal which is a more complicated medication. 10/01 patient seems to be a little more calm the still intermittently hyperactive. Agrees to increasing lithium to 600 mg q.h.s.; once mood better stabilized will likely start SSRI for PTSD 10/02Patient saying she feels better than she ever has, more stable, more calm, able to think more clearly. She feels that lithium is what is making this possible. Patient slept well last night. Today on the floor she was dancing around a bit but quiet it down after getting Zyprexa; selling underwriter continues to debate whether patient is having manic symptoms or if it is ADHD. Patient shared that she frequently has auditory hallucinations. She said that mostly it is of her father or God and that they are mostly encouraging comments or parental redirections; patient is vague but says there have been times in the past when a negative thing may have been said. Patient also says that she sees images, shadows and illusions. She said that right now, looking at selling underwriter she can see the silhouette of image behind. Patient's descriptions are vague and it is difficult to pinpoint specifics about these experiences and whether AVH is mood congruent vs trauma related vs due to an organic psychotic disorder vs only illusions. The fact that patient likes these experiences, welcomes them and finds them helpful seems to lean AVH more towards etiology of trauma history than an organic psychotic disorder. -ambivalent about aftercare; CSS verse going to limit her brothers in [place] verse going to her mother's in [place]. Patient is asking about being discharged this Friday -at this time will leave diagnosis is bipolar disorder; will consider AVH to be mood congruent for now as patient is vague and it is too difficult to assess further. 10/03 patient continues to stabilize; feeling better on lithium; still has intermittent SI when triggered by trauma or negative thoughts which are chronic; she reports they seem to resolve quickly. Patient endorses ongoing problematic PTSD symptoms and agrees to start Prozac; wants to get into a CSS feeling this is what is best for her long-term; if none available she will go stay at her brother's. Patient's ADHD symptoms are significant and do interfere with 1 on 1 sessions; selling underwriter entertained the idea of trial on a stimulant Plan: CV Q 15 minute checks Continue lithium ER 600 mg q.h.s. Start Prozac 10 mg daily for PTSD Continue gabapentin 300 mg q.i.d.. p.r.n. for anxiety Continue methadone 30 mg; will discuss maintenance plan; patient says this dose is helping with withdrawal however it will not keep for sober Comfort medications for withdrawal symptoms Gather collateral; patient gave verbal permission to discuss case with her mother and sister; mother also has history of substance abuse however has been sober for year and a half and the to are supportive Scheduling medication for constipation History Hepatitis C Pt currently asymptomatic: no abdominal pain or swelling, fever, fatigue, jaundice F/U outpatient with PCP for possible treatment Patient educated on: diagnosis, medication risk/benefits, substance abuse and therapeutic strategies Informed Consent: understands Reason for continued inpatient stay Substantial Risk for: rapid decompensation Time Spent With Patient Time: Total time managing care of this patient today ____ minutes.
[2022-10-03] MEDS: methADONE HCl 20 MG/2 ML ORAL.CONC 5 MG PO (11:25)
[2022-10-03] MEDS: FLUoxetine HCl 10 MG CAPSULE PO (11:25)
[2022-10-03] MEDS: Milk of Magnesia 30 ML ORAL.SUSP PO (11:25)
[2022-10-03] MEDS: Sennosides/Docusate Sodium TABLET 1 TAB PO ×2 (11:25→20:15)
[2022-10-03] MEDS: Bismuth Subsalicylate Liquid 524 MG/30 ML ORAL.SUSP 262 MG PO (12:24)
[2022-10-03 16:43] VITALS: BP 137/58; PULSE 83; RESP 18; TEMP 36.2; O2SAT 95
[2022-10-03] MEDS: hydrOXYzine HCL 50 MG TABLET PO (18:01)
[2022-10-03] MEDS: cloNIDine HCL 0.1 MG TABLET PO (18:01)
[2022-10-03] MEDS: Lithium Carbonate ER 300 MG TABLET.ER 600 MG PO (20:14)
[2022-10-04] MEDS: Clindamycin HCL 300 MG CAPSULE PO ×2 (06:33→13:38)
[2022-10-04] MEDS: FLUoxetine HCl 10 MG CAPSULE PO (07:59)
[2022-10-04] MEDS: Sennosides/Docusate Sodium TABLET 1 TAB PO (07:59)
[2022-10-04] MEDS: methADONE HCl 20 MG/2 ML ORAL.CONC 30 MG PO (07:59)
[2022-10-04] MEDS: Multivitamin TABLET 1 TAB PO (07:59)
[2022-10-04 08:03] VITALS: BP 102/58; PULSE 64; RESP 16; TEMP 36.4; O2SAT 99
[2022-10-04] MEDS: Gabapentin 300 MG CAPSULE PO ×2 (08:44→12:23)
[2022-10-04 09:30] LABS: Lithium 0.37 mmol/L (0.60-1.20)
--- NOTE | 2022-10-04 11:54 | P.PNPSI_ITS ---
Subjective Subjective Date of Service: 10/04/22 Reason For Visit: Depression,Opiate use d/o,Polysubstance abuse d/o Subjective Notes: Conditional Voluntary Healthcare Proxy: No Guardianship: No Medical Problems Affecting Mental Status: No Interim History: Pt asking for discharge. Feels she has received an appropriate medication consultation, has been started on an appropriate regime and now asks to leave to spend mother's day with her mother. Reports she has family who has identified AA support in [facility], and [place] and sister is willing to transport her. Asks for increased dosing on meds, education provided on how titration is most effective-no increase given today. Pt denies SI/HI. Denies AH, VH. No evidence of psychosis or kimberley, however she does present with hyperactivity-she reports a long hx of ADHD. Consulted with her team who is in agreement regarding discharge. Medication Compliance: Yes Side effects from medications: No Attending Groups: Intermittent Review of Systems Acute medical concerns: No Medical Review of Systems: unchanged Mental Status Exam Mental Status Exam Patient Appearance: Appropriate Patient Orientation: Person, Place, Time and Situation Level of Consciousness: Alert Patient Behavior: Appropriate, Talkative, Hyperactive (at times.), Cooperative and Good Eye Contact Mood Description: Appropriate and Labile Affect Description: Appropriate and Labile Patient Cognition Impaired: No Ability to Follow Directions: Good Speech Pattern: Spontaneous Speech Memory Description: Intact Hallucinations: None Delusions: Not Present Thought Process: Goal Oriented Thought Content: positive for Goal Oriented Judgement: Good Diagnostics Vital Signs (24Hr): Vital Signs - 24 hr 10/03/22 16:43 10/04/22 08:03 Temperature 97.1 F 97.6 F Pulse Rate 83 64 Respiratory Rate 18 16 Blood Pressure 137/58 L 102/58 L Pulse Oximetry 95 99 Oxygen Delivery Method Room Air Room Air BMI result Body Mass Index 29.9 Labs Labs: Laboratory Results - last 48 hr 10/04/22 08:13 [place] 0.37 L Medications Medications Current Medications Acetaminophen (Acetaminophen 325 Mg Tablet) 650 mg PO Q6H PRN PRN Reason: Headache/Pain Mild Scale (1-3) Al Hydroxide/Mg Hydroxide (Magnesium Hydrox/Alum Hydrox 30 Ml Oral.Susp) 30 ml PO Q6H PRN PRN Reason: Heartburn/Nausea Last Admin: 10/01/22 09:25 Dose: 30 ml Bismuth Subsalicylate (Bismuth Subsalicylate Liquid 524 Mg/30 Ml Oral.Susp) 262 mg PO QID PRN PRN Reason: digestive discomfort Clindamycin HCl (Clindamycin Hcl 300 Mg Capsule) 300 mg PO Q8H [facility] Last Admin: 10/04/22 06:33 Dose: 300 mg Clonidine HCl (Clonidine Hcl 0.1 Mg Tablet) 0.1 mg PO Q4H PRN; Protocol PRN Reason: Anxiety Last Admin: 10/03/22 18:01 Dose: 0.1 mg Cyclobenzaprine HCl (Cyclobenzaprine Hcl 10 Mg Tablet) 10 mg PO TID PRN PRN Reason: muscle cramps Last Admin: 09/28/22 11:15 Dose: 10 mg Dicyclomine HCl (Dicyclomine Hcl 10 Mg Capsule) 10 mg PO QID PRN PRN Reason: abdominal cramps Last Admin: 10/01/22 10:37 Dose: 10 mg Fluoxetine HCl (Fluoxetine Hcl 10 Mg Capsule) 10 mg PO DAILY [facility] Last Admin: 10/04/22 07:59 Dose: 10 mg Gabapentin (Gabapentin 300 Mg Capsule) 300 mg PO QID PRN PRN Reason: anxiety/insomnia Last Admin: 10/04/22 08:44 Dose: 300 mg Hydroxyzine HCl (Hydroxyzine Hcl 50 Mg Tablet) 50 mg PO Q6H PRN PRN Reason: Anxiety Last Admin: 10/03/22 18:01 Dose: 50 mg [place]legate Carbonate (Applegate Carbonate Er 300 Mg Tablet.Er) 600 mg PO BEDTIME [facility] Last Admin: 10/03/22 20:14 Dose: 600 mg Loperamide HCl (Loperamide Hcl 2 Mg Capsule) 2 mg PO Q6H PRN PRN Reason: Loose Stool Magnesium Hydroxide (Milk Of Magnesia 30 Ml Oral.Susp) 30 ml PO DAILY [facility] Last Admin: 10/04/22 08:01 Dose: Not Given Melatonin (Melatonin 3 Mg Tablet) 3 mg PO BEDTIME PRN PRN Reason: Insomnia Methadone HCl (Methadone Hcl 20 Mg/2 Ml Oral.Conc) 30 mg PO DAILY [facility] Last Admin: 10/04/22 07:59 Dose: 30 mg Multivitamins/Vitamin C (Multivitamin Tablet) 1 tab PO DAILY [facility] Last Admin: 10/04/22 07:59 Dose: 1 tab Nicotine (Nicotine 21 Mg Patch.Td24) 21 mg TRANSDERMA DAILY [facility] Last Admin: 10/04/22 08:10 Dose: Not Given Nicotine Polacrilex (Nicotine Polacrilex Lozenge 2 Mg Lozenge) 2 mg BUCCAL Q2H PRN PRN Reason: Nicotine Cravings Olanzapine (Olanzapine 5 Mg Tablet) 5 mg PO TID PRN PRN Reason: agitation Last Admin: 10/02/22 20:21 Dose: 5 mg Ondansetron HCl (Ondansetron Odt 4 Mg Tab.Rapdis) 4 mg TRANSLINGU Q6H PRN PRN Reason: nasuea Senna/Docusate Sodium (Sennosides/Docusate Sodium Tablet) 1 tab PO BID [facility] Last Admin: 10/04/22 07:59 Dose: 1 tab Trazodone HCl (Trazodone Hcl 50 Mg Tablet) 50 mg PO BEDTIME MRX1 PRN PRN Reason: Insomnia Allergies Allergies Allergy/AdvReac Type Severity Reaction Status Date / Time codeine Allergy Unknown Unknown Verified 09/27/22 14:43 perphenazine Allergy Unknown Unknown Verified 09/27/22 14:43 pcn Allergy Unknown Unknown Uncoded 09/27/22 14:43 Assessment & Plan Assessment & Plan (1) Bipolar disorder: Status: Acute Code(s): F31.9 - Bipolar disorder, unspecified (2) PTSD (post-traumatic stress disorder): Status: Acute Code(s): F43.10 - Post-traumatic stress disorder, unspecified (3) Opioid use disorder: Status: Acute Code(s): F11.90 - Opioid use, unspecified, uncomplicated (4) Cocaine use disorder: Status: Acute Code(s): F14.10 - Cocaine abuse, uncomplicated Plan Patient is a 31-year-old resilient, friendly female with history of PTSD, depression and mood lability, substance abuse who presents for depression, SI in the face of untreated psychiatric illness and ongoing substance abuse.? -patient is depressed; further review of history reveals evidence for bipolar disorder as patient has manic episodes that last about 3-5 days exhibiting most symptoms of kimberley. While ADHD and trauma are likely contributing factors, patient meets criteria for bipolar; she also has family history of bipolar disorder. -patient has history of severe and extensive trauma dating back to childhood; foster care...? Despite all this she managed to graduate high school and even attend some college Hospital course: 09/29 patient remains depressed with intermittent passive SI however she feels more hopeful and is very eager to pursue sobriety, coming up with hopeful plans. History further reviewed and patient meets criteria for bipolar disorder; she agrees to start lithium since she also has chronic depression and intermittent chronic SI. 09/30 continue current lithium dose; difficult to decide whether to increase does or to leave as it is since patient is not currently having a manic episode and thus unable to tell what dose she will need; also deciding on medication for PTSD and debating concerns about something like Prozac triggering a manic episode verses Lamictal which is a more complicated medication. 10/01 patient seems to be a little more calm the still intermittently hyperactive. Agrees to increasing lithium to 600 mg q.h.s.; once mood better stabilized will likely start SSRI for PTSD 10/02Patient saying she feels better than she ever has, more stable, more calm, able to think more clearly. She feels that lithium is what is making this possible. Patient slept well last night. Today on the floor she was dancing around a bit but quiet it down after getting Zyprexa; mortgage or loan underwriter continues to debate whether patient is having manic symptoms or if it is ADHD. Patient shared that she frequently has auditory hallucinations. She said that mostly it is of her father or God and that they are mostly encouraging comments or parental redirections; patient is vague but says there have been times in the past when a negative thing may have been said. Patient also says that she sees images, shadows and illusions. She said that right now, looking at mortgage or loan underwriter she can see the silhouette of image behind. Patient's descriptions are vague and it is difficult to pinpoint specifics about these experiences and whether AVH is mood congruent vs trauma related vs due to an organic psychotic disorder vs only illusions. The fact that patient likes these experiences, welcomes them and finds them helpful seems to lean AVH more towards etiology of trauma history than an organic psychotic disorder. -ambivalent about aftercare; CSS verse going to limit her brothers in [place] verse going to her mother's in [place]. Patient is asking about being discharged this Friday -at this time will leave diagnosis is bipolar disorder; will consider AVH to be mood congruent for now as patient is vague and it is too difficult to assess further. 10/03 patient continues to stabilize; feeling better on lithium; still has intermittent SI when triggered by trauma or negative thoughts which are chronic; she reports they seem to resolve quickly. Patient endorses ongoing problematic PTSD symptoms and agrees to start Prozac; wants to get into a CSS feeling this is what is best for her long-term; if none available she will go stay at her brother's. Patient's ADHD symptoms are significant and do interfere with 1 on 1 sessions; mortgage or loan underwriter entertained the idea of trial on a stimulant 10/04/22: Pt asks to discharge to spend time with her mother for mother's day. Discussed with team. Discharge as requested. Plan: CV Q 15 minute checks Continue lithium ER 600 mg q.h.s. Start Prozac 10 mg daily for PTSD Continue gabapentin 300 mg q.i.d.. p.r.n. for anxiety Continue methadone 30 mg; will discuss maintenance plan; patient says this dose is helping with withdrawal however it will not keep for sober Comfort medications for withdrawal symptoms Gather collateral; patient gave verbal permission to discuss case with her mother and sister; mother also has history of substance abuse however has been sober for year and a half and the to are supportive Scheduling medication for constipation History Hepatitis C Pt currently asymptomatic: no abdominal pain or swelling, fever, fatigue, jaundice F/U outpatient with PCP for possible treatment Patient educated on: medication risk/benefits and therapeutic strategies Informed Consent: understands Reason for continued inpatient stay Substantial Risk for: rapid decompensation Time Spent With Patient Time: Total time managing care of this patient today ____ minutes.
[2022-10-04] MEDS: methADONE HCl 20 MG/2 ML ORAL.CONC 5 MG PO (14:20)
--- NOTE | 2022-10-07 09:27 | PM.PSYDC ---
DS: Providers Provider Date of Service: 10/04/22 Date of admission: 09/27/22 21:22 Date of discharge: 10/04/22 Primary care physician: Unknown Physician Attending physician on admission: Ralph Rosa Consults: 09/27/22 14:43 Consult to Hospitalist Routine Comment: Consulting Provider: Hospitalist Reason For Exam: Transfer pt Discharging clinician: Ara Street DS: Diagnosis Discharge Diagnosis (1) Bipolar disorder: Status: Acute (2) PTSD (post-traumatic stress disorder): Status: Acute (3) Opioid use disorder: Status: Acute (4) Cocaine use disorder: Status: Acute DS: Medications Discharge Medications Home Medications: Home Medications Medication Instructions Recorded Confirmed methadone 10 mg tablet 30 mg PO DAILY 09/27/22 09/27/22 Previous Rx's Medication Instructions Recorded fluoxetine 10 mg capsule 10 mg PO DAILY #30 caps 10/04/22 gabapentin 300 mg capsule 300 mg PO QID PRN anxiety/insomnia 10/04/22 #28 caps lithium carbonate 300 mg 600 mg PO BEDTIME #30 tabs 10/04/22 tablet,extended release multivitamin-iron 9 mg-folic acid 1 tab PO DAILY #30 tabs 10/04/22 400 mcg-calcium and minerals tablet (Thera M Plus (ferrous fumarate)) nicotine (polacrilex) 2 mg buccal 2 mg buccal Q2H PRN Nicotine 10/04/22 lozenge Cravings #60 ea nicotine 21 mg/24 hr daily 1 patch transdermal Q24H #30 ea 10/04/22 transdermal patch olanzapine 5 mg tablet 5 mg PO TID PRN agitation #10 tabs 10/04/22 sennosides 8.6 mg-docusate sodium 1 tab PO BID #60 tabs 10/04/22 50 mg tablet (Senna Plus) Mental Status Exam Mental Status Exam Patient Appearance: Appropriate Patient Orientation: Person, Place, Time and Situation Level of Consciousness: Alert Patient Behavior: Appropriate, Talkative, Hyperactive (at times.), Cooperative and Good Eye Contact Mood Description: Appropriate and Labile Affect Description: Appropriate and Labile Patient Cognition Impaired: No Ability to Follow Directions: Good Speech Pattern: Spontaneous Speech Memory Description: Intact Hallucinations: None Delusions: Not Present Thought Process: Goal Oriented Thought Content: positive for Goal Oriented Judgement: Good Data Data Completed and Pending Completed studies during hospitalization [Text1]: 10/04/22 08:13 [place] 0.37 L DS: Summary Hospital Course Hospital Course: HPI: Patient is a 31-year-old resilient, friendly female with history of PTSD, depression and mood lability, substance abuse who presents for depression, SI in the face of untreated psychiatric illness and ongoing substance abuse.? -patient is depressed; further review of history reveals evidence for bipolar disorder as patient has manic episodes that last about 3-5 days exhibiting most symptoms of kimberley.? While ADHD and trauma are likely contributing factors, patient meets criteria for bipolar; she also has family history of bipolar disorder. -patient has history of severe and extensive trauma dating back to childhood; foster care...? Despite all this she managed to graduate high school and even attend some college Hospital course: 09/29 patient remains depressed with intermittent passive SI however she feels more hopeful and is very eager to pursue sobriety, coming up with hopeful plans.? History further reviewed and patient meets criteria for bipolar disorder; she agrees to start lithium since she also has chronic depression and intermittent chronic SI. 09/30 continue current lithium dose; difficult to decide whether to increase does or to leave as it is since patient is not currently having a manic episode and thus unable to tell what dose she will need; also deciding on medication for PTSD and debating concerns about something like Prozac triggering a manic episode verses Lamictal which is a more complicated medication. 10/01 patient seems to be a little more calm the still intermittently hyperactive.? Agrees to increasing lithium to 600 mg q.h.s.; once mood better stabilized will likely start SSRI for PTSD 10/02 Patient saying she feels better than she ever has, more stable, more calm, able to think more clearly.? She feels that lithium is what is making this possible.? Patient slept well last night. Today on the floor she was dancing around a bit but quiet it down after getting Zyprexa; advertising writer continues to debate whether patient is having manic symptoms or if it is ADHD. -Patient shared that she frequently has auditory hallucinations.? She said that mostly AH is of her father or God and that AH is mostly encouraging comments or parental redirections; patient is vague but says there have been times in the past when a negative thing may have been said.? Patient also says that she sees images, shadows and illusions.? She said that right now, looking at advertising writer she can see the silhouette of image behind.? Patient's descriptions are vague and it is difficult to pinpoint specifics about these experiences and whether AVH is mood congruent vs trauma related vs due to an organic psychotic disorder vs only illusions.? The fact that patient likes these experiences, welcomes them and finds them helpful seems to lean AVH more towards etiology of trauma history than an organic psychotic disorder. -ambivalent about aftercare; CSS verse going to limit her brothers in [place] verse going to her mother's in [place].? Patient is asking about being discharged this Friday -at this time will leave diagnosis is bipolar disorder; will consider AVH to be mood congruent/trauma derived for now (rather than organic psychotic illness), as patient is vague and it is too difficult to assess further. 10/03 patient continues to stabilize; feeling better on lithium; still has intermittent SI when triggered by trauma or negative thoughts which are chronic; she reports they seem to resolve quickly.? Patient endorses ongoing problematic PTSD symptoms and agrees to start Prozac; wants to get into a CSS feeling this is what is best for her long-term; if none available she will go stay at her brother's.? Patient's ADHD symptoms are significant and do interfere with 1 on 1 sessions; advertising writer entertained the idea of trial on a stimulant 10/04/22: Pt was safe and not in imminent risk for harm to self, but planned to remain for weekend and discharge to a program the following week. However On Friday, 10/04, patient changed her mind and asked to be discharge to spend time with her mother for mother's day, planning to live with family (pt had been ambivalent about going to a program vs family throughout admission). Sue was covering who discussed with team who agreed that patient remained safe and able to continue treatment in the community. Pt's mood remained significantly better and depression resolved; pt sleeping through the night; though intermittent SI, it remained passive and ephemeral and is a chronic issue she carmela with day to day. Pt was in good mood and optimistic about staying sober; pt tolerating medications and finding them helpful. Steam Hammer Operator had previously reviewed risks/side-effect of med regimen which pt understood. At this time, however, she did not want to remain longer for [place] level and other labwork but said she would follow up with outpt provider. Patient has struggled with severe substance abuse for years and she remains at risk for relapse and dysregulation; however patient was not in imminent risk for harm to self or others and request for discharge honored. Dx: Bipolar disorder PTSD ADHD (AH which at this point assigning etiology as trauma origin) Meds: lithium ER 600 mg q.h.s. Prozac 10 mg daily for PTSD gabapentin 300 mg q.i.d.. p.r.n. for anxiety methadone 30 mgon History Hepatitis C Pt currently asymptomatic: no abdominal pain or swelling, fever, fatigue, jaundice F/U outpatient with PCP for possible treatment Time spent discussing smoking cessation with patient: 3 to 10 minutes Status at Discharge Functional status at discharge: independent ambulation Overall status at discharge: patient is back to baseline Time Spent with Patient Time attestation: Total time managing care of this patient today ____ minutes. Discharge Plan Discharge Anticipated Discharge Date/Time: 10/04/22 17:00 Patient Disposition: Xfer Other Discharge Diagnosis: Bipolar Disorder PTSD Cocaine, Opiate Use Disorder Referrals: Clinical and Support Options: [facility] (Intake) [Other] - 10/08/22 10:00 am (Initial Diagnostic evaluation for Therapy/psychiatry Patient needs to attend appointment to receive medication management services.) [facility] (Methadone) [Other] - Tomorrow (Medication assisted treatment clinic scheduled dosing to begin 10/05/22.) [facility] [Provider Group] - 1 Week (walk in for urgent care Call for primary care if needed [phone] ) Discharge Medications: New sennosides-docusate sodium [Senna Plus] 8.6-50 mg Tablet 1 tab PO BID Qty: 60 0RF olanzapine 5 mg Tablet 5 mg PO TID PRN (Reason: agitation) Qty: 10 0RF lithium carbonate 300 mg Tablet Extended Release 600 mg PO BEDTIME Qty: 30 0RF fluoxetine 10 mg Capsule 10 mg PO DAILY Qty: 30 0RF gabapentin 300 mg Capsule 300 mg PO QID PRN (Reason: anxiety/insomnia) Qty: 28 4RF nicotine (polacrilex) 2 mg Lozenge 2 mg buccal Q2H PRN (Reason: Nicotine Cravings) Qty: 60 0RF Continued methadone 10 mg Tablet 30 mg PO DAILY nicotine 21 mg/24 hr Patch 24 Hour 1 patch TRANSDERMAL Q24H Qty: 30 0RF Thera M Plus (ferrous fumarat) 9 mg iron-400 mcg Tablet 1 tab PO DAILY Qty: 30 0RF Discontinued clindamycin HCl 300 mg Capsule 300 mg PO Q8H melatonin 3 mg Tablet 3 mg PO BEDTIME PRN (Reason: Insomnia) ibuprofen 400 mg Tablet 400 mg PO Q6H PRN (Reason: Pain) nicotine (polacrilex) 2 mg Lozenge 2 mg BUCCAL Q2-4H PRN (Reason: Nicotine Cravings) Discharge Orders: Discharge Order (Routine); Ordered 10/04/22 Ordered By: Ara Street Diet: Advance to usual diet Activity on Discharge: As tolerated Stand Alone Forms: Patient Portal Discharge page, Community Support Care Plan Goals: Mood and behavioral stability Work on sobriety Follow up with [facility] Maintenance [facility] Health Concerns: Mood and behavioral stability Sobriety Consistency in Methadone Maintenance Plan of Treatment: Follow up with scheduled appointments Work on your sobriety Take medications as directed Call and/or return as needed Use crisis services in your area as needed Medications have been sent to [address] [address]. Assessment: Lexus has asked to leave today. She reports medicine changes are helpful, she is feeling improved, and she would like to spend Mother's Day with her mother and family as mother is sober She was interviewed prior to discharge and found to be fully oriented and without SI/HI. She has insight and demonstrates good judgment in terms of wanting to continue her treatment plan that she established while hospitalized. She is not in imminent risk of harm to self or others and has a safety plan that includes involving support and presenting to the closest ER or calling 911 if she is feeling unsafe. She has been observed by nursing and unit staff throughout admission. She has not engaged in any behaviors that suggest dangerousness to self or others and has demonstrated appropriate behaviors and control of impulses. Discharge Date/Time: 10/04/22 15:05
== END 2022-10-04 15:05 | disposition other institution (70) | DRG 753 ==
PROVIDERS: Admitting Provider Psychiatry & Neurology Psychiatry; Visit Provider Psychiatry & Neurology Psychiatry
DX: F31.9 Bipolar disorder, unspecified (principal); R45.851 Suicidal ideations; B19.20 Unspecified viral hepatitis C without hepatic coma; F11.20 Opioid dependence, uncomplicated; F43.10 Post-traumatic stress disorder, unspecified; F14.10 Cocaine abuse, uncomplicated; F19.10 Other psychoactive substance abuse, uncomplicated; F17.210 Nicotine dependence, cigarettes, uncomplicated; Z71.6 Tobacco abuse counseling; Z59.01 Sheltered homelessness; Z88.5 Allergy status to narcotic agent; Z88.8 Allergy status to other drugs, medicaments and biological substances; Z79.899 Other long term (current) drug therapy
CPT/HCPCS: 36415; 80178